=== PATIENT | male | born 1990 | race Caucasian/White ===

== ENCOUNTER 2020-12-10 12:18 | Emergency (ER) | payer OTHER ==
[~2020-12-10] VITALS: Ht 182.9 cm; Wt 100.0 kg
[2020-12-10 12:55] VITALS: BP 142/90
== END 2020-12-10 14:06 | disposition left against medical advice (07) ==
LOC: EMS 12:18
DX: R44.0 Auditory hallucinations (principal); R44.1 Visual hallucinations
CPT/HCPCS: 99281; Z7502

== ENCOUNTER 2020-12-18 19:59 | Emergency (ER) | payer OTHER ==
[~2020-12-18] VITALS: Ht 180.3 cm; Wt 104.5 kg
[2020-12-18 20:00] VITALS: BP 153/63
[2020-12-18] MEDS ORDERED: OLANZapine 5 MG TABLET PO ONE (21:00)
== END 2020-12-18 21:30 | disposition home or self-care (01) ==
LOC: EMS 19:59
DX: F29 Unspecified psychosis not due to a substance or known physiological condition (principal); F22 Delusional disorders; F17.210 Nicotine dependence, cigarettes, uncomplicated; F12.90 Cannabis use, unspecified, uncomplicated
CPT/HCPCS: 99284; Z7502; Z7610

== ENCOUNTER 2021-01-13 00:23 | Emergency (ER) | payer OTHER ==
[~2021-01-13] VITALS: Ht 177.8 cm; Wt 104.5 kg
[2021-01-13] MEDS ORDERED: LORazepam 1 MG TABLET PO ONE (01:15)
[2021-01-13 01:48] VITALS: BP 153/97
== END 2021-01-13 01:45 | disposition home or self-care (01) ==
LOC: EMS 00:26
DX: R44.0 Auditory hallucinations (principal); R44.1 Visual hallucinations; F17.210 Nicotine dependence, cigarettes, uncomplicated; F12.90 Cannabis use, unspecified, uncomplicated
CPT/HCPCS: 99284; Z7502; Z7610